=== PATIENT | female | born 1940 | race Caucasian/White ===

== ENCOUNTER 2018-10-17 14:29 | Emergency (ER) | payer MEDICARE, OTHER ==
[~2018-10-17] VITALS: Wt 72.7 kg
[2018-10-17] MEDS ORDERED: SODIUM CHLORIDE 0.9% 1L BAG IV* STA (14:41)
[2018-10-17] MEDS ORDERED: CEFEPIME 2GM/50 ML (PMX) 50 ML IVPB STA (14:41)
[2018-10-17] MEDS ORDERED: QUET200T PO (15:57)
[2018-10-17] MEDS ORDERED: QUET100T PO (15:57)
[2018-10-17] MEDS ORDERED: HYDROmorphONE 0.5 MG/0.5 ML SYG IV STA (16:00)
[2018-10-17] MEDS ORDERED: IOHEXOL 100 ML ONE (16:08)
[2018-10-17] MEDS ORDERED: SOD CHLORIDE 0.9% 100 ML ONE (16:08)
[2018-10-17] MEDS ORDERED: CEPH-443 PO (17:17)
--- NOTE | 2018-10-17 17:22 | ERD ---
ER Documentation Chief Complaint Chief Complaint fever for the past few days with foul smelling urine. more aloc HPI 78-year-old female brought in from her care facility by ambulance for fever for the past few days with associated foul-smelling urine. Today she was more altered than usual so she was sent in for evaluation. Patient does not have any complaints but it is difficult to get a history from her given her presumed jyoti ntia. She denies any pain or discomfort at this time. ROS Unable to obtain Medications Home Meds Active Scripts Cephalexin* (Keflex*) 500 Mg Capsule, 500 MG PO BID for 7 Days, CAP Prov:RICHARD STERLING MD 10/17/18 Reported Medications Quetiapine Fumarate* (Seroquel*) 200 Mg Tablet, 200 MG PO HS, #30 TAB 10/17/18 Quetiapine Fumarate* (Seroquel*) 100 Mg Tablet, 100 MG PO QAM, #60 TAB 10/17/18 Allergies Allergies: Coded Allergies: No Known Allergy (Unverified , 10/17/18) PMhx/Soc Unable to obtain Medical and Surgical Hx: Unable to obtain Hx Neurological Disorder: Yes (DEMENTIA) Smoking Status: Never smoker FmHx Unable to obtain Physical Exam Vitals Vital Signs Date Temp Pulse Resp B/P (MAP) Pulse Ox O2 O2 Flow FiO2 Time Delivery Rate 10/17/18 99.4 87 20 148/84 99 Nasal 2.0 16:34 (105) Cannula 10/17/18 Nasal 2 15:30 Cannula 10/17/18 99.0 93 20 128/60 98 14:37 (82) Physical Exam Const: No acute distress Head: Atraumatic Eyes: Normal Conjunctiva ENT: Dry oral mucosa Neck: Full range of motion. No meningismus. Resp: Clear to auscultation bilaterally Cardio: Regular rate and rhythm, no murmurs Abd: Soft, non tender, non distended. Normal bowel sounds Skin: No petechiae or rashes Back: No midline or flank tenderness Ext: No cyanosis, or edema Neur: Awake and alert, normal speech, not oriented. Moves all extremities spontaneously Psych: Normal Mood and Affect Result Diagram: 10/17/18 1449 10/17/18 1449 Results 24 hrs Laboratory Tests Test 10/17/18 14:49 10/17/18 16:26 White Blood Count 12.8 10^3/ul Red Blood Count 4.34 10^6/ul Hemoglobin 13.0 g/dl Hematocrit 39.9 % Mean Corpuscular Volume 91.9 fl Mean Corpuscular Hemoglobin 30.0 pg Mean Corpuscular Hemoglobin Concent 32.6 g/dl Red Cell Distribution Width 13.2 % Platelet Count 261 10^3/UL Mean Platelet Volume 10.7 fl Immature Granulocytes % 0.700 % Neutrophils % 79.0 % Lymphocytes % 10.2 % Monocytes % 9.7 % Eosinophils % 0.2 % Basophils % 0.2 % Nucleated Red Blood Cells % 0.0 /100WBC Immature Granulocytes # 0.090 10^3/ul Neutrophils # 10.2 10^3/ul Lymphocytes # 1.3 10^3/ul Monocytes # 1.2 10^3/ul Eosinophils # 0.0 10^3/ul Basophils # 0.0 10^3/ul Nucleated Red Blood Cells # 0.0 10^3/ul Prothrombin Time 12.5 Sec Prothrombin Time Ratio 1.0 INR International Normalized Ratio 0.92 Activated Partial Thromboplast Time 26.8 Sec Sodium Level 140 mmol/L Potassium Level 4.3 mmol/L Chloride Level 102 mmol/L Carbon Dioxide Level 27 mmol/L Anion Gap 11 Blood Urea Nitrogen 27 mg/dl Creatinine 0.79 mg/dl Est Glomerular Filtrat Rate mL/min mL/min Glucose Level 130 mg/dl POC Venous Lactate 1.6 mmol/L Calcium Level 8.9 mg/dl Total Bilirubin 0.2 mg/dl Direct Bilirubin 0.00 mg/dl Indirect Bilirubin 0.2 mg/dl Aspartate Amino Transf (AST/SGOT) 26 IU/L Alanine Aminotransferase (ALT/SGPT) 23 IU/L Alkaline Phosphatase 84 IU/L Troponin I < 0.012 ng/ml Total Protein 6.9 g/dl Albumin 3.4 g/dl Globulin 3.50 g/dl Albumin/Globulin Ratio 0.97 Urine Color YELLOW Urine Clarity SLIGHTLY CLOUDY Urine pH 5.0 Urine Specific [place] 1.038 Urine Ketones TRACE mg/dL Urine Nitrite NEGATIVE mg/dL Urine Bilirubin NEGATIVE mg/dL Urine Urobilinogen NEGATIVE mg/dL Urine Leukocyte Esterase 1+ Giancarlo/ul Urine Microscopic RBC 7 /HPF Urine Microscopic WBC 11 /HPF Urine Squamous Epithelial Cells FEW /HPF Urine Mucus MODERATE /HPF Urine Hemoglobin NEGATIVE mg/dL Urine Glucose NEGATIVE mg/dL Urine Total Protein NEGATIVE mg/dl Current Medications Medications Dose Sig/Ewa Start Time Status Last (Trade) Ordered Route PRN Stop Time Admin Dose Reason Admin Sodium 2,180 ml BOLUS OVER 2 10/17/18 DC 10/17/18 Chloride HOURS STAT 14:41 14:57 (NS) IV* 10/17/18 14:43 Cefepime HCl 50 ml @ ONCE STAT 10/17/18 DC 10/17/18 100 mls/hr IVPB 14:41 14:59 10/17/18 15:10 1 mg ONCE STAT 10/17/18 DC Hydromorphone IV 16:00 HCl 10/17/18 16:14 (Dilaudid) IV Flush 10 ml STK-MED 10/17/18 DC (NS 10 ml) ONCE .ROUTE 16:08 10/17/18 16:09 Sodium 100 ml @ ud STK-MED 10/17/18 DC Chloride ONCE .ROUTE 16:08 10/17/18 16:09 Iohexol 100 ml @ ud STK-MED 10/17/18 DC ONCE .ROUTE 16:08 10/17/18 16:09 Procedures/MDM EMERGENT LABS AND DIAGNOSTIC STUDIES: Lab Results above were reviewed and interpreted by me. CBC: leukocytosis, concerning for infection CMP: Elevated BUN with normal creatinine, likely secondary to dehydration. No evidence of electrolyte abnormality, renal failure, hypoglycemia, liver failure, or biliary obstruction Lipase: no evidence of pancreatitis Troponin within normal limits, not indicative of cardiac ischemia Lactate within normal limits without evidence of sepsis or tissue hypoperfusion UA: Findings consistent with acute infection 12-lead EKG was interpreted by Parviz Sterling MD: Sinus rhythm with sinus arrhythmia at 70 bpm Normal axis Normal intervals No acute ST or T wave changes suggestive of acute ischemia or STEMI. Radiology Results as interpreted by Radiology below were reviewed by Pennie Sterling MD: Chest x-ray shows no acute abnormalities Initial Nursing notes reviewed. Previous Medical Records requested via the Electronic Health Record. EMERGENCY DEPARTMENT COURSE / MEDICAL DECISION MAKING: Patient is presenting with low-grade fever, foul-smelling urine, and meets SIRS criteria. Code sepsis was activated. However there is no evidence of severe sepsis or septic shock. She did have a UTI for which antibiotics were given. Patient is hemodynamically stable with no significant abnormalities in her workup other than evidence of infection. I feel she is stable for discharge back to her facility with oral antibiotics. Prescription for Keflex given. Patient's blood pressure was elevated (>120/80) but appears stable without evidence of hypertensive emergency or urgency. The patient was counseled about the risks of hypertension and urged to pursue outpatient monitoring and therapy within a week with their primary care physician. Departure Diagnosis: Primary Impression: Sepsis Sepsis type: sepsis due to unspecified organism Qualified Codes: A41.9 - Sepsis, unspecified organism Additional Impression: UTI (urinary tract infection) Urinary tract infection type: site unspecified Hematuria presence: without hematuria Qualified Codes: N39.0 - Urinary tract infection, site not specified Condition: Stable Patient Instructions: Understanding Urinary Tract Infections (UTIs) RICHARD STERLING MD Oct 17, 2018 17:22
[2018-10-17 20:00] VITALS: BP 147/79; PULSE 73; RESP 22
== END 2018-10-17 20:02 | disposition home or self-care (01) ==
LOC: E/R 14:29
DX: A41.9 Sepsis, unspecified organism (principal); N39.0 Urinary tract infection, site not specified; R40.2122 Coma scale, eyes open, to pain, at arrival to emergency department; R40.2242 Coma scale, best verbal response, confused conversation, at arrival to emergency department; R40.2352 Coma scale, best motor response, localizes pain, at arrival to emergency department
CPT/HCPCS: 36415; 71045; 80053; 81001; 83605; 84484; 85025; 85610; 85730; 87040; 87086; 93005; 96365; 96366; 99285; J0692; J7030; Q9967